=== PATIENT | male | born 1985 | race Caucasian/White ===

== ENCOUNTER 2021-12-30 10:48 | Emergency (ER) | payer MEDICAID ==
[~2021-12-30] VITALS: Ht 180.3 cm; Wt 127.0 kg
[2021-12-30 11:02] VITALS: BP_SYST 180
--- NOTE | 2021-12-30 11:06 | NUR ---
Patient to ER bed 5 to gown for evaluation. Side rails up. Report given to JANE HALE
--- NOTE | 2021-12-30 11:15 | NUR ---
PATIENT AMBULATORY TO ER C/O JAW PAIN S/P TOOTH REMOVAL, IN BED AWAITING FOR EDP FOR INITIAL ASSESSMENT.
--- NOTE | 2021-12-30 12:20 | NUR ---
PATIENT MEDICATED TOLERATED WELL.
[2021-12-30] MEDS ORDERED: CEFEPIME 2 GM in D5W 100 ML IV ONE (12:30)
[2021-12-30] MEDS ORDERED: DEXAMETHASONE SOD PHOSPHATE 10 MG/ML VIAL IVP ONE (12:30)
[2021-12-30] MEDS ORDERED: MORPHINE 4 MG INJ. 4 MG/ML VIAL IVP ONE (12:30)
[2021-12-30] MEDS ORDERED: KETOROLAC TROMETHAMINE 30 MG VIAL IVP ONE (12:30)
--- NOTE | 2021-12-30 13:15 | NUR ---
SPOKE TO PHARMACY REGARDING ANTIBIOTIC
--- NOTE | 2021-12-30 13:45 | NUR ---
SPOKE TO PHARMACY FOR ANTIBIOTIC
[2021-12-30] MEDS ORDERED: LEVO750T64 PO (14:24)
[2021-12-30] MEDS ORDERED: HYDR-3927 PO (14:24)
[2021-12-30] MEDS ORDERED: CEFEPIME 2 GM in NS 100 ML IV ONE (15:00)
--- NOTE | 2021-12-30 16:00 | NUR ---
ANTIBIOTIC GIVEN PATIENT VERBALIZES FEELING BETTER
--- NOTE | 2021-12-30 16:23 | NUR ---
Patient given written and verbal discharge instructions and verbalizes understanding. ER MD discussed with patient the results and treatment provided. Patient in stable condition. ID arm band removed. IV catheter removed intact and dressing applied, no active bleeding. Rx of NORCO/LEVAQUIN given. Patient educated on pain management and to follow up with PMD. Pain Scale . Opportunity for questions provided and answered. Medication side effect fact sheet provided.
[2021-12-30 16:24] VITALS: BP_SYST 144
--- NOTE | 2022-01-12 20:39 | NUR ---
ADDENDUM Cefepime 2gm NS 100ml @ 100mls/hr start time 15:38hr end time 16:36hr
== END 2021-12-30 16:23 | disposition home or self-care (01) ==
LOC: SED 10:48
DX: L03.213 Periorbital cellulitis (principal); I10 Essential (primary) hypertension; F12.90 Cannabis use, unspecified, uncomplicated; Z79.899 Other long term (current) drug therapy
CPT/HCPCS: 99284; 96365; 96375; J0692; J1100; J1885; J2270